=== PATIENT | male | born 1980 | race Caucasian/White ===

== ENCOUNTER 2020-10-09 23:38 | Emergency (ER) | payer OTHER ==
[~2020-10-09] VITALS: Ht 180.3 cm; Wt 83.9 kg
[2020-10-10 00:48] LABS: Albumin 3.5 g/dL (3.4-5.0); BUN/Creatinine Ratio 19.4; Calcium 8.4 mg/dL (8.5-10.1); Potassium 4.1 mmol/L (3.5-5.1)
[2020-10-10 00:50] LABS: Bilirubin, Total 0.2 mg/dL (0.2-1.0); Total Protein 7.8 g/dL (6.4-8.2)
[2020-10-10 00:57] LABS: Basophils # (auto) 0 10 ^3/uL (0-0.2); Basophils % (auto) 0.4 % (0.0-2.0); Eosinophils # (auto) 0.3 10 ^3/uL (0-0.8); Eosinophils % (auto) 2.4 % (0.0-7.0); Hematocrit 37.9 % (41.0-53.0); Hemoglobin 12.6 g/dL (13.5-17.5); Lymphocytes # (auto) 1.2 10 ^3/uL (0.4-5.4); Lymphocytes % (auto) 9.4 % (10.0-50.0); Mean Corpuscular Hemoglobin 28.1 pg (28.0-32.0); Mean Corpuscular Hgb Conc. 33.3 g/dL (32.0-36.0); Mean Corpuscular Volume 84.3 fL (80.0-100.0); Monocytes # (auto) 1.2 10 ^3/uL (0-1.3); Neutrophils # (auto) 10.1 10 ^3/uL (1.6-8.6); Neutrophils % (auto) 78.8 % (37.0-80.0); Red Blood Cells 4.49 10^6/uL (4.5-5.90); Red Cell Distribution Width 14.6 % (11.8-14.3); White Blood Cell 12.8 10^3/uL (4.4-10.8)
[2020-10-10] MEDS ORDERED: KETOROLAC TROMETH 30 MG/ML 1ML VIAL IV ONE (04:15)
[2020-10-10] MEDS ORDERED: fentaNYL CITRATE 100 MCG/2 ML VL IV ONE (04:15)
[2020-10-10] MEDS ORDERED: cefTRIAXone 1GM/50ML D5W 50 ML IV ONE (04:15)
[2020-10-10] MEDS ORDERED: VANCOMYCIN 1GM/250ML 250 ML IV ONE (06:15)
[2020-10-10 07:35] VITALS: BP 137/93
== END 2020-10-10 09:44 | disposition left against medical advice (07) ==
LOC: ER 23:38
DX: M79.641 Pain in right hand (principal); L08.9 Local infection of the skin and subcutaneous tissue, unspecified; F19.10 Other psychoactive substance abuse, uncomplicated; F17.210 Nicotine dependence, cigarettes, uncomplicated; Z90.89 Acquired absence of other organs; Z98.890 Other specified postprocedural states
CPT/HCPCS: 36415; 73120; 73200; 80053; 85025; 87040; 96365; 96366; 96367; 96375; 99285; J0696; J1885; J3010; J3370

== ENCOUNTER 2021-03-08 19:44 | Emergency (ER) | payer OTHER ==
[~2021-03-08] VITALS: Ht 177.8 cm; Wt 86.2 kg
[2021-03-08] MEDS ORDERED: SODIUM CHLORIDE 0.9% 1,000 ML IV ONE (20:00)
[2021-03-08] MEDS ORDERED: HYDROmorphone HCL 2 MG/ML VL IV ONE ×2 (20:00→21:15)
[2021-03-08 21:08] LABS: Albumin 3.6 g/dL (3.4-5.0); Anion Gap 6 (5-15); Blood Alcohol < 3.0 mg/dL (0-5); Blood Urea Nitrogen 16 mg/dL (7-18); Calcium 8.4 mg/dL (8.5-10.1); Carbon Dioxide 26 mmol/L (21-32); Chloride 102 mmol/L (98-107); Glucose 101 mg/dL (74-106); Lipase 60 U/L (73-393); Sodium 134 mmol/L (136-145)
[2021-03-08 21:14] LABS: Alanine Aminotransferase 18 U/L (16-61); Alkaline Phosphatase 86 U/L (45-117); Aspartate Aminotransferase 54 U/L (15-37); Bilirubin, Total 0.2 mg/dL (0.2-1.0); GFR African American 137 mL/min; GFR Non-African American 113 mL/min; Total Protein 7.1 g/dL (6.4-8.2)
[2021-03-08 21:42] LABS: Basophils # (auto) 0 10 ^3/uL (0-0.2); Basophils % (auto) 0.4 % (0.0-2.0); Eosinophils # (auto) 0.1 10 ^3/uL (0-0.8); Eosinophils % (auto) 0.9 % (0.0-7.0); Hematocrit 34.6 % (41.0-53.0); Hemoglobin 11.6 g/dL (13.5-17.5); Lymphocytes # (auto) 0.2 10 ^3/uL (0.4-5.4); Lymphocytes % (auto) 1.9 % (10.0-50.0); Mean Corpuscular Hemoglobin 28.6 pg (28.0-32.0); Mean Corpuscular Hgb Conc. 33.5 g/dL (32.0-36.0); Mean Corpuscular Volume 85.5 fL (80.0-100.0); Monocytes # (auto) 0.9 10 ^3/uL (0-1.3); Monocytes % (auto) 10.6 % (0.0-12.0); Neutrophils # (auto) 7.3 10 ^3/uL (1.6-8.6); Neutrophils % (auto) 86.2 % (37.0-80.0); Nucleated Red Blood Cells % 0.1 %; Red Blood Cells 4.04 10^6/uL (4.5-5.90); Red Cell Distribution Width 14.2 % (11.8-14.3); White Blood Cell 8.5 10^3/uL (4.4-10.8)
[2021-03-08] MEDS ORDERED: PROPOFOL 10 MG/ML 20 ML IV ONE (23:15)
[2021-03-08] MEDS ORDERED: KETAMINE 50mg/ML 10ml Vial (500mg/10ml) IV ONE (23:15)
[2021-03-09 02:05] VITALS: BP 117/72
[2021-03-09] MEDS ORDERED: KETAMINE 50mg/ML 10ml Vial (500mg/10ml) IV ONE (02:15)
[2021-03-09] MEDS ORDERED: PROPOFOL 10 MG/ML 20 ML IV ONE (02:15)
== END 2021-03-09 02:52 | disposition short-term general hospital (02) ==
LOC: EDBD 19:44 → ER 19:45
DX: S82.141A Displaced bicondylar fracture of right tibia, initial encounter for closed fracture (principal); S73.004A Unspecified dislocation of right hip, initial encounter; V43.52XA Car driver injured in collision with other type car in traffic accident, initial encounter; Y93.89 Activity, other specified; Y92.410 Unspecified street and highway as the place of occurrence of the external cause; Y99.8 Other external cause status
CPT/HCPCS: 27250; 36415; 70450; 71250; 72125; 72170; 72192; 73130; 73564; 74176; 80053; 80320; 83690; 85025; 93005; 96361; 96374; 96376; 99285; J1170; J2704; J7030; 96375